=== PATIENT | female | born 1950 | race Caucasian/White ===

== ENCOUNTER 2025-09-13 14:43 | Inpatient (IN) | payer MEDICARE, SELFPAY ==
[2025-09-13] MEDS ORDERED: Ondansetron PF 4 MG/2 ML Vial ONE (15:16)
[2025-09-13] MEDS ORDERED: diphenhydrAMINE 50 MG/ML VIAL ONE (15:55)
[2025-09-13] MEDS ORDERED: Metoclopramide HCl 10 MG (2 mL) VIAL ONE (15:55)
[2025-09-13 17:08] LABS: ALT (SGPT) 8 U/L (Less than 34); AST (SGOT) 22 U/L (11-34); Albumin 3.7 g/dL (3.1-4.5); Alkaline Phosphatase 141 U/L (40-110); Anion Gap 22 mmol/L (10-20); BUN (Urea Nitrogen) 15 mg/dL (9.8-20.1); Bilirubin, Total 1.1 mg/dL (0.3-1.2); Calc. Creatinine Clearance 0 mL/min (70-130); Calcium 10.8 mg/dL (7.8-10.44); Carbon Dioxide 15 mmol/L (23-31); Chloride 107 mmol/L (98-107); Globulin 4.8 g/dL (2.4-3.5); Glucose 185 mg/dL (83-110); Lipase 31 U/L (8-78); Potassium 3.5 mmol/L (3.5-5.1); Sodium 140 mmol/L (136-145)
[2025-09-13 17:09] LABS: Troponin I Less than 0.010 ng/mL (< 0.028)
[2025-09-13 17:12] LABS: INR-International Normal Ratio 1.5; Prothrombin Time 17.9 sec (12.0-14.7)
[2025-09-13 17:13] LABS: PTT 33.5 sec (22.9-36.1)
[2025-09-13 17:15] LABS: D-Dimer Test 0.33 mcg/mL (0.27-0.43)
[2025-09-13 17:16] LABS: Glucose, Urine (Dipstick) 100 mg/dL (Negative); Leukocyte Negative (Negative); Protein, Urine (Dipstick) Negative (Neg-Trace); Specific Gravity, Urine 1.020 (1.005-1.030)
[2025-09-13 17:18] LABS: Hematocrit 35.5 % (36.0-47.0); Hemoglobin 12.0 g/dL (12.0-16.0); Mean Corpuscular Hemoglobin 30.8 pg (27.0-31.0); Mean Corpuscular Volume 91.3 fl (78.0-98.0); Platelet Count 125 10x3/uL (130-400); Red Blood Cell (RBC) Count 3.89 mill/uL (4.20-5.40); White Blood Cell (WBC) Count 6.2 10x3/uL (4.8-10.8)
[2025-09-13 17:22] LABS: Cocaine Metabolite Screen Negative (Negative); THC/Cannabinoid Screen Negative (Negative); Tricyclic Screen Negative (Negative)
[2025-09-13 17:27] LABS: Bacteria/HPF Rare-Few HPF (None Seen); CAUTI Indications for Culture Fever or rigors; RBC/HPF 0-3 HPF (0-3); WBC/HPF 0-3 HPF (0-3)
[2025-09-13 17:28] LABS: Urine Culture Reflex No No
[2025-09-13 18:51] LABS: Bicarbonate (HCO3v) 18.1 mmol/L (22.0-28.0); CO2 Tension (PvCO2) 18.1 mmHg (42.0-51.0); Calcium, Ionized 1.09 mmol/L (1.15-1.33); Chloride 114 mmol/L (98-107); Hemoglobin - Calc 12.9 g/dL (12.0-16.0); Potassium 4.5 mmol/L (3.5-5.1); Sodium 138 mmol/L (138-145); T. Carbon Dioxide 18.7 mmol/L (22.0-28.0); vO2 Saturation-calc 99.5 % (60.0-85.0)
[2025-09-13 18:53] LABS: MDiff Complete? YES
[2025-09-13 20:29] LABS: Anion Gap 21 mmol/L (10-20); BUN (Urea Nitrogen) 13 mg/dL (9.8-20.1); Calc. Creatinine Clearance 0 mL/min (70-130); Calcium 10.4 mg/dL (7.8-10.44); Carbon Dioxide 16 mmol/L (23-31); Chloride 106 mmol/L (98-107); Glucose 199 mg/dL (83-110); Potassium 3.3 mmol/L (3.5-5.1); Sodium 140 mmol/L (136-145)
[2025-09-13] MEDS ORDERED: Potassium Bicarbonate/Cit Ac 25 MEQ TAB ONE (22:40)
[2025-09-14] MEDS ORDERED: Acetaminophen 500 MG TAB ONE ×3 (01:09→19:06)
[2025-09-14] MEDS ORDERED: Ondansetron PF 4 MG/2 ML Vial ONE (01:50)
[2025-09-14 11:43] LABS: Anion Gap 18 mmol/L (10-20); BUN (Urea Nitrogen) 12 mg/dL (9.8-20.1); Calc. Creatinine Clearance 0 mL/min (70-130); Calcium 10.0 mg/dL (7.8-10.44); Carbon Dioxide 19 mmol/L (23-31); Chloride 105 mmol/L (98-107); Glucose 170 mg/dL (83-110); Potassium 3.9 mmol/L (3.5-5.1); Sodium 138 mmol/L (136-145)
[2025-09-14 11:49] LABS: Hematocrit 33.7 % (36.0-47.0); Hemoglobin 11.5 g/dL (12.0-16.0); MDiff Complete? YES; Manual Diff?? YES; Mean Corpuscular Hemoglobin 30.9 pg (27.0-31.0); Mean Corpuscular Volume 90.8 fl (78.0-98.0); Platelet Count 118 10x3/uL (130-400); Red Blood Cell (RBC) Count 3.72 mill/uL (4.20-5.40); White Blood Cell (WBC) Count 7.2 10x3/uL (4.8-10.8)
[2025-09-14 11:50] LABS: Platelet Adequacy Comment Platelets Normal
[2025-09-14] MEDS ORDERED: Glucagon 1 MG/ML KIT IM PRN (20:20)
[2025-09-14] MEDS ORDERED: Dextrose 50% Abboject 50 ML SYRINGE SLOW IVP PRN (20:20)
[2025-09-14] MEDS ORDERED: Senokot S 8.6-50 MG TAB PO PRN (20:21)
[2025-09-14] MEDS ORDERED: Famotidine 20 MG TAB PO SCH (21:00)
[2025-09-14 21:11] VITALS: BMI 25.7
[2025-09-14] MEDS: Apixaban 5 MG TAB PO SCH (22:17)
[2025-09-14] MEDS: Acetaminophen 325 MG TAB PO PRN (22:59)
[2025-09-15 00:45] VITALS: BP 146/70; TEMP 97.8
[2025-09-15] MEDS ORDERED: Metoprolol Succinate XL 25 MG ER.TAB PO SCH (09:00)
[2025-09-15] MEDS ORDERED: Pantoprazole 40 MG DR.TAB PO SCH (09:00)
[2025-09-15] MEDS ORDERED: Allopurinol 100 MG TAB PO SCH (09:00)
[2025-09-16] MEDS ORDERED: Ferrous Sulfate 325 MG TAB PO SCH (09:00)
== END 2025-09-15 03:14 | disposition short-term general hospital (02) | DRG 872 ==
LOC: NAV ERS 14:43 → NAV ACUTE 21:10
PROVIDERS: ADMIT Family Medicine; ATTEND Family Medicine
DX: A41.9 Sepsis, unspecified organism (principal); E87.3 Alkalosis; E87.20 Acidosis, unspecified; I48.20 Chronic atrial fibrillation, unspecified; N17.9 Acute kidney failure, unspecified; K52.9 Noninfective gastroenteritis and colitis, unspecified; E11.22 Type 2 diabetes mellitus with diabetic chronic kidney disease; E78.5 Hyperlipidemia, unspecified; I12.9 Hypertensive chronic kidney disease with stage 1 through stage 4 chronic kidney disease, or unspecified chronic kidney disease; K74.60 Unspecified cirrhosis of liver; D50.9 Iron deficiency anemia, unspecified; Z90.710 Acquired absence of both cervix and uterus; Z80.8 Family history of malignant neoplasm of other organs or systems; Z79.899 Other long term (current) drug therapy; E86.0 Dehydration; E78.00 Pure hypercholesterolemia, unspecified; F10.10 Alcohol abuse, uncomplicated; R65.20 Severe sepsis without septic shock; E87.6 Hypokalemia; N18.32 Chronic kidney disease, stage 3b; D69.6 Thrombocytopenia, unspecified; D63.1 Anemia in chronic kidney disease
CPT/HCPCS: 36415; 36416; 71045; 74176; 80048; 80053; 80306; 80307; 81001; 82330; 82803; 83605; 83690; 83735; 83880; 84484; 85025; 85379; 85610; 85730; 87040; 87428; 93005; 94760; 96360; 96361; 96365; 96366; 96375; 96376; J1200; J1885; J2272; J2405; J2543; J2765; J7030; J7042; Q0162

== ENCOUNTER 2025-09-15 00:49 | Emergency (ER) | payer MEDICARE ==
[2025-09-15] MEDS ORDERED: Ondansetron PF 4 MG/2 ML Vial ONE (00:57)
[2025-09-15] MEDS ORDERED: Ketorolac Tromethamine 30 MG (1 mL) VIAL ONE (00:57)
[2025-09-15] MEDS ORDERED: dilTIAZem 25 MG/5 ML VIAL ONE (01:33)
[2025-09-15 01:37] LABS: Hematocrit 41.6 % (36.0-47.0); Hemoglobin 14.4 g/dL (12.0-16.0); MDiff Complete? YES; Mean Corpuscular Hemoglobin 31.1 pg (27.0-31.0); Mean Corpuscular Volume 89.9 fl (78.0-98.0); Platelet Count 149 10x3/uL (130-400); Red Blood Cell (RBC) Count 4.63 mill/uL (4.20-5.40); White Blood Cell (WBC) Count 8.4 10x3/uL (4.8-10.8)
[2025-09-15 01:39] LABS: %Lymphocytes 25.0 % (21.0-51.0); %Monocytes 4.0 % (0.0-10.0); %Neutrophils 71.0 % (42.0-75.0); Manual Diff?? YES
[2025-09-15 01:46] LABS: Troponin I 0.058 ng/mL (< 0.028)
[2025-09-15 01:51] LABS: ALT (SGPT) 18 U/L (Less than 34); AST (SGOT) 37 U/L (11-34); Albumin 3.8 g/dL (3.1-4.5); Alkaline Phosphatase 168 U/L (40-110); Anion Gap 22 mmol/L (10-20); BUN (Urea Nitrogen) 12 mg/dL (9.8-20.1); Bilirubin, Total 1.6 mg/dL (0.3-1.2); Calc. Creatinine Clearance 0 mL/min (70-130); Calcium 10.2 mg/dL (7.8-10.44); Carbon Dioxide 14 mmol/L (23-31); Chloride 102 mmol/L (98-107); Globulin 5.2 g/dL (2.4-3.5); Glucose 165 mg/dL (83-110); Potassium 3.7 mmol/L (3.5-5.1); Sodium 134 mmol/L (136-145)
[2025-09-15 02:16] LABS: Magnesium 1.6 mg/dL (1.6-2.6)
[2025-09-15] MEDS ORDERED: Aspirin Chewable 81 MG TAB ONE (02:50)
== END 2025-09-15 03:45 | disposition short-term general hospital (02) ==
LOC: NAV ERS 00:49
DX: I48.91 Unspecified atrial fibrillation (principal); K52.9 Noninfective gastroenteritis and colitis, unspecified; E11.9 Type 2 diabetes mellitus without complications; E78.2 Mixed hyperlipidemia; I10 Essential (primary) hypertension; Z79.01 Long term (current) use of anticoagulants; Z79.899 Other long term (current) drug therapy
CPT/HCPCS: 36415; 83735; 83880; 84484; 93005; 94760; 96365; 96375; J1885; J2272; J2405; J2543